=== PATIENT | female | born 1990 | race Caucasian/White ===

== ENCOUNTER 2019-10-10 19:57 | Emergency (ER) | payer SELFPAY ==
[2019-10-10 21:21] LABS: Bilirubin Negative (Negative); Blood, Urine Negative (Negative); Clarity Clear (Clear); Glucose, Urine (Dipstick) Normal (Negative); Leukocyte Negative Leu/uL (Negative); Nitrite Negative (Negative); Protein, Urine (Dipstick) Negative (Neg-Trace); Urobilinogen Normal mg/dL (Less than 2)
[2019-10-10 21:23] LABS: Pregnancy Test - Urine (BHCG) Negative (Negative); Pregu Control Background? CLEAR/WHITE (CLR/WHITE); Pregu Control Bar Appear? YES (CONTROL BAR); Specific Gravity 1.013 (1.002-1.036)
[2019-10-10 22:13] LABS: #Eosinphils 0.1 thou/uL (0.0-0.7); #Lymphocytes 2.3 thou/uL (1.20-3.40); #Monocytes 0.4 thou/uL (0.11-0.59); #Neutrophils 3.7 thou/uL (1.40-6.50); %Basophils 0.4 % (0.0-1.0); %Eosinophils 1.2 % (0.0-10.0); %Lymphocytes 35.8 % (21.0-51.0); %Monocytes 5.4 % (0.0-10.0); %Neutrophils 57.2 % (42.0-75.0); Hemoglobin 14.1 g/dL (12.0-16.0); Mean Corpuscular HGB CONC 33.2 g/dL (32.0-36.0); Mean Corpuscular Hemoglobin 29.2 pg (27.0-31.0); Mean Corpuscular Volume 87.8 fL (78.0-98.0); Mean Platelet Volume 8.1 fL (7.4-10.4); Platelet Count 261 thou/uL (130-400); RBC Distribution Width 11.6 % (11.5-14.5); Red Blood Cell (RBC) Count 4.84 mill/uL (4.20-5.40); White Blood Cell (WBC) Count 6.5 thou/uL (4.8-10.8)
[2019-10-10 22:35] LABS: ALT (SGPT) 14 U/L (8-55); AST (SGOT) 21 U/L (5-34); Albumin 4.4 g/dL (3.5-5.0); Alkaline Phosphatase 96 U/L (40-110); Anion Gap 11 mmol/L (10-20); BUN (Urea Nitrogen) 14 mg/dL (7.0-18.7); Bilirubin, Total 0.3 mg/dL (0.2-1.2); Calc. Creatinine Clearance 0 mL/min (70-130); Calcium 9.9 mg/dL (7.8-10.44); Carbon Dioxide 26 mmol/L (22-29); Chloride 106 mmol/L (98-107); Estimated GFR-MDRD 79; Globulin 2.7 g/dL (2.4-3.5); Glucose 98 mg/dL (70-105); Protein, Total 7.1 g/dL (6.0-8.3); Sodium 139 mmol/L (136-145)
--- NOTE | 2019-10-10 23:27 | MRI ---
MRI OF THE LUMBAR SPINE WITH AND WITHOUT CONTRAST: 10/10/19 COMPARISON: None. HISTORY: Low back pain. TECHNIQUE: Multiplanar and multisequence MR imaging of the lumbar spine obtained with and without contrast. FINDINGS: There is no significant anterolisthesis or retrolisthesis. STIR imaging demonstrates no focal area of osseous marrow edema. On the basis of five lumbar type vertebral bodies, conus medullaris terminates at L1. T12-L1: Intervertebral disc height and signal intensity appears within normal limits. No central sachin l or neural foraminal stenosis. L1-2: Intervertebral disc height and signal intensity within normal limits with no central canal or n eural foraminal stenosis. L2-3: Intervertebral disc height and signal intensity within normal limits. No central canal or neura l foraminal stenosis. L3-4: Intervertebral disc height and signal intensity within normal limits. No central canal or neura l foraminal stenosis. L4-5: There is disc space narrowing with disc desiccation. There is a central disc protrusion with mi ld central canal stenosis. No significant neural foraminal stenosis. L5-S1: There is a small left paracentral disc protrusion. There is mild disc desiccation and disc spa ce narrowing. No significant central canal or neural foraminal stenosis. The imaged retroperitoneal structures appear grossly unremarkable. Post contrast imaging demonstrates no abnormal enhancement within the lumbar spine. IMPRESSION: Mild lower lumbar spine degenerative disc disease as detailed above. POS: EMILY
[2019-10-10] MEDS ORDERED: Ketorolac Tromethamine 30 MG/ML VIAL ONE (23:55)
== END 2019-10-11 00:15 | disposition home or self-care (01) ==
LOC: ERS 19:57
DX: M54.41 Lumbago with sciatica, right side (principal); M54.42 Lumbago with sciatica, left side; Z79.899 Other long term (current) drug therapy
CPT/HCPCS: 72158; 80053; 81003; 81025; 85025; 85652; 86140; 96374; J1885